=== PATIENT | male | born 1970 | race Two or more races ===

== ENCOUNTER 2020-09-28 19:46 | Emergency (ER) | payer OTHER ==
[~2020-09-28] VITALS: Ht 175.3 cm; Wt 109.4 kg
[2020-09-28] MEDS ORDERED: AMLODIPINE BESYLATE (20:10)
[2020-09-28] MEDS ORDERED: LISI-170 PO (20:10)
[2020-09-28] MEDS ORDERED: FLUORESCEIN OPHTHALMIC 1 MG STRIP ONE (20:15)
[2020-09-28] MEDS ORDERED: PROPARACAINE OPHTH 0.5%, 15ML ONE (20:15)
[2020-09-28] MEDS ORDERED: hydrALAzine 20 MG/ML, 1ML ONE (21:07)
--- NOTE | 2020-09-28 21:17 | NUR ---
PIV PLACED BY CHAPERON. SHOE FITTER PER DEC.
[2020-09-28] MEDS ORDERED: hydrALAzine 20 MG/ML, 1ML IV ONE (21:30)
[2020-09-28 21:47] VITALS: BP 149/105
--- NOTE | 2020-09-28 21:48 | NUR ---
PT BP DECREASED AFTER MEDS. CHART UP FOR RECHECK.
== END 2020-09-28 22:27 | disposition home or self-care (01) ==
LOC: ED 21:40
DX: H53.131 Sudden visual loss, right eye (principal); I10 Essential (primary) hypertension
CPT/HCPCS: 96374; 99283; J0360; 96372